=== PATIENT | male | born 1995 | race Caucasian/White ===

== ENCOUNTER 2016-05-29 17:23 | Emergency (ER) ==
[2016-05-29] MEDS ORDERED: NORFLEX IM ONE (17:56)
[2016-05-29] MEDS ORDERED: DECADRON IM ONE (17:56)
[2016-05-29] MEDS ORDERED: TORADOL IM ONE (17:56)
--- NOTE | 2016-05-29 18:02 | PROVIDER DOCUMENTATION ---
HPI-Musculoskeletal Pain/Inj - GENERAL Chief Complaint: Back Pain Stated Complaint: LOWER BACK/RT LEG PAIN Time Seen by Provider: 05/29/16 17:43 Source: patient - HX OF PRESENT ILLNESS-MUSKULOSKELTAL Nature of Presenting Problem: 20 y/o WM c/o back pain x 2 days. Pt states that he has had herniated discs in the past and thinks he re-injured it 2 days ago. States that he has pain in T and L spine with shooting pain down RLE. Denies any bowel/bladder dysfunction, numbness/tingling, saddle anesthesia. Pain /10. Review of Systems - Adult - REVIEW OF SYSTEMS - ADULT Constitutional: reports: no symptoms reported. denies: chills, fever Eyes: reports: no symptoms reported. denies: blurred vision, double vision Ears, Nose, Mouth & Throat: reports: no symptoms reported. denies: ear pain, nose pain Cardiovascular: reports: no symptoms reported. denies: chest pain, palpitations Respiratory: reports: no symptoms reported. denies: dyspnea on exertion, shortness of breath Gastrointestinal: reports: no symptoms reported. denies: abdominal pain, nausea , vomiting Genitourinary: reports: no symptoms reported. denies: dysuria, frequency Musculoskeletal: reports: see HPI, back pain. denies: joint pain, joint swelling Integumentary: reports: no symptoms reported. denies: nail changes, rash Neurological: reports: no symptoms reported. denies: numbness, paresthesia Psychiatric: reports: no symptoms reported Endocrine: reports: no symptoms reported. denies: cold intolerance, heat intolerance Hematologic/Lymphatic: reports: no symptoms reported. denies: easy bruising, prolonged bleeding Allergic/Immunologic: reports: no symptoms reported All Other Systems: Reviewed and Negative Past History - Adult - PAST MEDICAL HISTORY-ADULT Review of Records: reports: Nursing Assessment Review, Medications Reviewed Major Childhood Illnesses: reports: denies history Cardiovascular: reports: denies history Respiratory: reports: denies history Gastrointestinal: reports: denies history Obstetrical/Gynecological: reports: denies history Genitourinary: reports: denies history Musculoskeletal: reports: denies history Neurological: reports: denies history Endocrine/Immune: reports: denies history Other Conditions: reports: denies history - SOCIAL HISTORY Smoking: cigarettes, less than 1 pack/day Provider spent 3-5 mins advising pt. on dangers of tobacco.: Discussed manners to quit use, and f/u contacts for add'l counseling. Physical Exam-Injury Related - Physical Exam-Injury Related Initial Vital Signs Reviewed: Yes General Appearance: alert, mild distress Eyes: pink conjunctivae Head, Ears, Nose, Mouth & Throat: normocephalic/atraumatic, moist mucous membranes Neck: normal inspection Respiratory: no respiratory distress Cardiovascular: normal peripheral pulses, regular rate, rhythm Peripheral Pulses: dorsalis-pedis (R): 1+, dorsalis-pedis (L): 1+ Back Exam: vertebral tenderness (T and L spine) Extremity: normal inspection, normal capillary refill. negative: abnormal NV exam, pulse deficit Integumentary: normal color, warm/dry Neurologic: motor weakness (LLE with dorsiflexion of foot). negative: aphasia, sensory deficit Psych/Mental Status: AL, normal mood/affect, normal thought content, normal thought process, oriented x 3 Progress - PLAN OF CARE/RESULTS Progress/Plan/Lab Results: Orders Category Date Time Status LUMBAR SPINE W/O CONTRAST [CT] Stat Exams 05/29/16 17:52 Taken THORACIC SPINE W/O CONTRAST [CT] Stat Exams 05/29/16 17:52 Taken Dexamethasone [Decadron] Med 05/29/16 17:56 Discontinued 10 mg IM NOW ONE Hydrocodone/APAP 7.5 mg/325 mg [[place]-7.5] Med 05/29/16 18:44 Discontinued 1 each PO NOW ONE Hydromorphone [Dilaudid] Med 05/29/16 19:02 Discontinued 2 mg IM NOW ONE Ketorolac [Toradol] Med 05/29/16 17:56 Discontinued 60 mg IM NOW ONE Lorazepam [Ativan] Med 05/29/16 19:29 Discontinued 2 mg .ROUTE .STK-MED ONE Ondansetron [Zofran] Med 05/29/16 18:45 Discontinued 4 mg PO NOW ONE Orphenadrine [Norflex] Med 05/29/16 17:56 Discontinued 60 mg IM NOW ONE Vital Signs Temp Pulse Resp BP Pulse Ox 05/29/16 20:12 89 18 136/72 100 05/29/16 17:29 97.6 F 101 H 18 141/71 100 morphine Adverse Reaction (Verified 05/29/16 17:50) Unknown MORPHINE Adverse Reaction (Uncoded 05/29/16 17:50) Unknown Lidocaine [Aspercreme] 1 each TP DAILY #14 adh..patch 05/29/16 Meloxicam [Mobic] 15 mg PO DAILY #30 tablet 05/29/16 Methocarbamol [Robaxin] 500 mg PO BID #30 tablet 05/29/16 Discussed results and f/u with pt and mother. - CT/MRI 1 CT Study: Lumbar Spine Impression: See EMR Report (DDD at lower 3 levels that appear completely stable. -per Dr. Cassidy) 2 CT Study: other (thoracic spine) Impression: See EMR Report (Normal, per Dr. Cassidy) Departure - Departure Time of Disposition Order: 19:56 DIAGNOSIS: DDD (degenerative disc disease), lumbar Sciatica Qualifiers: Laterality: right Qualified Code(s): M54.31 - Sciatica, right side Disposition: HOME 01 Certified Medical Emergency: Emergent Condition: Stable Additional Instructions: Take medications as directed. Follow up with specialist for further management. Ice or heat as needed. Limit activity level for at least 10 days. ED Follow Up Instructions: You have been treated by a care provider in the Emergency Department. These instructions are being provided to you so you can have an understanding of how to care for yourself upon discharge. Upon discharge from the Emergency Department, you are responsible for making arrangements for follow-up care by a physician of your choice. Take all prescribed medications as directed. Return to the Emergency Department immediately for any new or worsening symptoms. You may call the Physician Referral phone number at [phone] to obtain a list of Physicians who are taking new patients. Prescriptions: Lidocaine [Aspercreme] 1 each TP DAILY #14 adh..patch Meloxicam [Mobic] 15 mg PO DAILY #30 tablet Methocarbamol [Robaxin] 500 mg PO BID #30 tablet Referrals: None,PCP [Primary Care Provider] - Messi Trammell MD [STAFF PHYSICIAN] - Forms: Return to School/Parent Work Instructions: Sciatica, [id number], Degenerative Disk Disease Attestation - Physician/ Mid-level Attestation Patient care was provided by Mid-level provider (TECHNICAL DESIGNER/PA):: Yes Mid-level provider:: Luz White Mid-level documentation review:: The Mid-level provider documentation, treatment plan and medical decision making was reviewed by the physician who agrees with all treatment and medical decision making by the MLP.
[2016-05-29] MEDS ORDERED: NORCO-7.5 PO ONE (18:44)
[2016-05-29] MEDS ORDERED: ZOFRAN PO ONE (18:45)
[2016-05-29] MEDS ORDERED: DILAUDID IM ONE (19:02)
[2016-05-29] MEDS ORDERED: ATIVAN ONE (19:29)
[2016-05-29 20:13] VITALS: BP 136/72
--- NOTE | 2016-05-29 22:04 | Diag Imaging Result Document ---
PROCEDURE NAME: THORACIC SPINE W/O CONTRAST - 05/29/2016 CT THORACIC SPINE WITHOUT CONTRAST: COMPARISON: None available. FINDINGS: There is no evidence of fracture, subluxation, or intrinsic osseous lesion. The intervertebral disk spaces and vertebral body heights appear to be well maintained. The central canal appears to be patent. Surrounding soft tissues are grossly unremarkable. IMPRESSION: Unremarkable CT of the thoracic spine.
--- NOTE | 2016-05-29 22:09 | Diag Imaging Result Document ---
PROCEDURE NAME: LUMBAR SPINE W/O CONTRAST - 05/29/2016 CT LUMBAR SPINE WITHOUT CONTRAST: COMPARISON: 02/25/2016. 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 There are broad-based disk bulges at L3-4, L4-5, and L5-S1 like the previous study. There is no evidence of high-grade stenosis at L3-4. The most significant level appears to be L4-5 where there is a broad-based disk bulge and a superimposed right paracentral disk protrusion. This is causing at least moderate central spinal stenosis and moderate bilateral foraminal stenosis. At L5-S1, there is a broad- based disk that is causing mild central canal narrowing and moderate foraminal narrowing. Note that all of these levels appear to be completely stable as compared to the previous study. If further evaluation is warranted clinically, an MRI would probably be more helpful than CT if not contraindicated. Surrounding soft tissues are grossly unremarkable. IMPRESSION: Degenerative disk disease at the lower 3 lumbar levels as described that appear to be completely stable as compared to the previous study. [facility]
== END 2016-05-29 20:38 | disposition home or self-care (01) ==
LOC: ED 17:23
DX: M54.31 Sciatica, right side (principal); M51.36 Other intervertebral disc degeneration, lumbar region; M54.9 Dorsalgia, unspecified; F17.219 Nicotine dependence, cigarettes, with unspecified nicotine-induced disorders; Z71.6 Tobacco abuse counseling
CPT/HCPCS: 72128; 72131; 96372; J1170; J1885; J2060; J2360